=== PATIENT | female | born 1985 | race Two or more races ===

== ENCOUNTER 2019-04-13 15:57 | Outpatient (CLI) | payer OTHER | END 2019-04-13 16:07 | disposition home or self-care (01) | LOC: SONOGRAMA 15:57 | DX: N60.19 Diffuse cystic mastopathy of unspecified breast (principal) ==

== ENCOUNTER 2023-01-13 15:34 | Outpatient (CLI) | payer OTHER | END 2023-01-13 15:39 | disposition home or self-care (01) | LOC: RAD 15:34 | PROVIDERS: ATTEND Physical Medicine & Rehabilitation Hospice and Palliative Medicine | DX: M22.42 Chondromalacia patellae, left knee (principal) ==

== ENCOUNTER 2024-02-13 09:40 | Emergency (ER) | payer OTHER ==
[~2024-02-13] VITALS: Ht 160 cm; Wt 60.3 kg
[2024-02-13] MEDS ORDERED: ECOTRIN81 MG PO (10:17)
[2024-02-13] MEDS ORDERED: FOLBIC TABLET1 EACH PO (10:18)
[2024-02-13] MEDS ORDERED: ONDANSETRON 4 MG TAB.RAPDIS PO STA (11:04)
[2024-02-13] MEDS ORDERED: FAMOtidine 10 MG/ML (4ML VIAL) IV STA (11:04)
[2024-02-13 11:53] LABS: HEMATOCRIT 32.7 % (36.0-45.00); HEMOGLOBIN 11.4 g/dL (12.0-15.00); MEAN CORPUSCULAR HEMOGLOBIN 31.6 pg (27.00-32.0); MEAN CORPUSCULAR HGB CONC 34.7 g/dl (32.0-36.0); PLATELET COUNT 399 K/uL (150-450); RED CELL DISTRIBUTION WIDTH 13.7 % (11.5-14.5)
[2024-02-13 12:38] LABS: CALCIUM 8.7 mg/dL (8.5-10.1); CREATININE SERUM 0.38 mg/dL (0.55-1.02); GFR 188.53; POTASSIUM 4.47 mEq/L (3.5-5.1)
[2024-02-13] MEDS ORDERED: ACETAMINOPHEN 500 MG GEL..CAP PO STA (13:50)
[2024-02-13 14:18] LABS: PH,URINE 6.5 (5.0-8.0); URINE APPEARANCE Clear; URINE BILIRRUBIN Negative (NEGATIVE); URINE BLOOD Negative; URINE COLOR Yellow; URINE GLUCOSE Negative (NEGATIVE); URINE LEUKOCYTE Negative; URINE NITRATE Negative; URINE PROTEIN Negative (NEGATIVE); URINE UROBILINOGEN 0.2 E.U./dl
[2024-02-13 14:19] LABS: URINE BACTERIA 565.5 uL (0.0-1933); URINE EPITHELIAL CELLS 4.7 uL (0.0-38.8); URINE RBC 22.7 uL (0.0-20.8); URINE WBC 8.1 uL (0.0-23.2)
[2024-02-13 14:22] LABS: URINE KETONE 40 (NEGATIVE)
[2024-02-13] MEDS ORDERED: SUMATRIPTAN SUCCINATE 6 MG/0.5 ML VIAL SUBCUTANEO ONE (20:00)
[2024-02-13] MEDS ORDERED: ONDANSETRON HCL 2 MG/ML VIAL IV ONE (20:30)
[2024-02-14] MEDS ORDERED: RINGERS SOLUTION,LACTATED 1,000 ML IV SCH (09:00)
== END 2024-02-13 20:51 | disposition home or self-care (01) ==
LOC: ER 09:42
PROVIDERS: General Practice
DX: O21.0 Mild hyperemesis gravidarum (principal); Z3A.08 8 weeks gestation of pregnancy; Z88.2 Allergy status to sulfonamides

== ENCOUNTER 2024-03-26 19:36 | Emergency (ER) | payer OTHER ==
[~2024-03-26] VITALS: Ht 160 cm; Wt 63.5 kg
[~2024-03-26 19:36] MED LIST: ECOTRIN81 MG PO; FOLBIC TABLET1 EACH PO
[2024-03-27 03:50] LABS: PH,URINE 5.5 (5.0-8.0); URINE APPEARANCE Clear; URINE BILIRRUBIN Negative (NEGATIVE); URINE BLOOD Small; URINE COLOR Yellow; URINE GLUCOSE Negative (NEGATIVE); URINE KETONE Negative (NEGATIVE); URINE LEUKOCYTE Negative; URINE NITRATE Negative; URINE PROTEIN Negative (NEGATIVE); URINE UROBILINOGEN 0.2 E.U./dl
[2024-03-27 03:53] LABS: URINE EPITHELIAL CELLS 3.8 uL (0.0-38.8); URINE RBC 13.4 uL (0.0-20.8); URINE WBC 9.8 uL (0.0-23.2)
== END 2024-03-27 03:50 | disposition home or self-care (01) ==
LOC: ER 19:38
PROVIDERS: Emergency Medicine
DX: O26.852 Spotting complicating pregnancy, second trimester (principal); Z3A.16 16 weeks gestation of pregnancy; Z88.2 Allergy status to sulfonamides

== ENCOUNTER 2024-04-19 21:19 | Inpatient (IN) | payer OTHER ==
[~2024-04-19] VITALS: Ht 160 cm; Wt 64.9 kg
[2024-04-19 20:53] VITALS: BP 103/64
[2024-04-19] MEDS ORDERED: MAGNESIUM SULFATE IN WATER 500 ML IV SCH (21:45)
[2024-04-19] MEDS ORDERED: MORPHINE SULFATE 4 MG/ML CARTRIDGE IV PRN (21:45)
[2024-04-19] MEDS ORDERED: MAGNESIUM SULFATE IN WATER 100 ML IV ONE (21:45)
[2024-04-19] MEDS ORDERED: RINGERS SOLUTION,LACTATED 1,000 ML IV SCH (21:45)
[2024-04-19 23:11] LABS: HEMATOCRIT 27.8 % (36.0-45.00); HEMOGLOBIN 9.6 g/dL (12.0-15.00); MEAN CELL VOLUME 94.3 fL (80.00-100.00); MEAN CORPUSCULAR HEMOGLOBIN 32.5 pg (27.00-32.0); MEAN CORPUSCULAR HGB CONC 34.5 g/dl (32.0-36.0); PLATELET COUNT 336 K/uL (150-450); RED BLOOD COUNT 2.94 M/uL (4.00-6.00); RED CELL DISTRIBUTION WIDTH 14.3 % (11.5-14.5)
[2024-04-19 23:12] LABS: URINE APPEARANCE Clear; URINE BILIRRUBIN Negative (NEGATIVE); URINE BLOOD Negative; URINE COLOR Yellow; URINE GLUCOSE Negative (NEGATIVE); URINE KETONE Negative (NEGATIVE); URINE LEUKOCYTE Trace; URINE NITRATE Negative; URINE PROTEIN Negative (NEGATIVE); URINE UROBILINOGEN 0.2 E.U./dl
[2024-04-19 23:14] VITALS: BP 100/63
[2024-04-19 23:17] LABS: URINE BACTERIA 594.6 uL (0.0-1933); URINE EPITHELIAL CELLS 9.9 uL (0.0-38.8); URINE RBC 5.3 uL (0.0-20.8); URINE WBC 18.2 uL (0.0-23.2)
[2024-04-19 23:21] LABS: URINE CAST 0.14 uL (0.0-1.40)
[2024-04-19 23:29] LABS: INR 0.96; PARTIAL THROMBOPLASTIN TIME 21.5 SECONDS (22.0-34.0); PROTHROMBIN TIME 10.5 SECONDS (9.0-11.5)
[2024-04-19 23:31] LABS: ALBUMIN 2.7 gm/dL (3.4-5.0); BILIRUBIN TOTAL 0.25 mg/dL (0.3-1.2); CALCIUM 8.9 mg/dL (8.5-10.1); CREATININE SERUM 0.43 mg/dL (0.55-1.02); GFR 163.47; GLOBULINA 3.5 G/DL (2.4-3.5); POTASSIUM 4.3 mEq/L (3.5-5.1); TOTAL PROTEIN 6.2 gm/dL (6.4-8.2)
[2024-04-20] VITALS (7 sets, daily range): BP systolic 95–108; BP diastolic 60–70; O2SAT 99–100
[2024-04-20] MEDS ORDERED: SOD FERRIC GLUC COMPLX/SUCROSE 125 MG in 0.9 % SODIUM CHLORIDE 100 ML IV SCH (09:00)
[2024-04-20] MEDS ORDERED: PNV,CALCIUM 72/IRON/FOLIC ACID 1 TAB TABLET PO SCH (09:00)
[2024-04-20] MEDS ORDERED: ONDANSETRON HCL 2 MG/ML VIAL IV SCH (09:00)
[2024-04-20] MEDS ORDERED: CYCLOBENZAPRINE HCL 5 MG TABLET PO PRN (17:15)
[2024-04-20] MEDS ORDERED: DOCUSATE CALCIUM 240 MG CAPSULE PO SCH (23:43)
[2024-04-20] MEDS ORDERED: ONDANSETRON HCL 2 MG/ML VIAL IV PRN (23:50)
[2024-04-21 04:06] VITALS: BP 95/60
[2024-04-21 07:15] VITALS: BP 94/56
[2024-04-21 11:48] VITALS: BP 103/64
== END 2024-04-21 12:13 | disposition home or self-care (01) | DRG 833 ==
LOC: LDR 21:19
PROVIDERS: ADMIT Obstetrics & Gynecology Maternal & Fetal Medicine; ATTEND Obstetrics & Gynecology Maternal & Fetal Medicine
PROC: 4A1HXCZ Monitoring of Products of Conception, Cardiac Rate, External Approach (ICD-10-PCS; principal; 2024-04-19)
PROC: BT43ZZZ Ultrasonography of Bilateral Kidneys (ICD-10-PCS; 2024-04-20)
DX: O26.892 Other specified pregnancy related conditions, second trimester (principal); R10.9 Unspecified abdominal pain; O30.002 Twin pregnancy, unspecified number of placenta and unspecified number of amniotic sacs, second trimester; Z3A.20 20 weeks gestation of pregnancy; Z20.822 Contact with and (suspected) exposure to COVID-19

== ENCOUNTER 2024-05-26 11:15 | Outpatient (CLI) | payer OTHER | END 2024-05-26 12:24 | disposition home or self-care (01) | LOC: NST 11:15 | PROVIDERS: ATTEND Obstetrics & Gynecology Maternal & Fetal Medicine | DX: Z3A.25 25 weeks gestation of pregnancy (principal) ==

== ENCOUNTER 2024-06-09 12:37 | Outpatient (CLI) | payer OTHER | END 2024-06-09 13:48 | disposition home or self-care (01) | LOC: NST 12:37 | PROVIDERS: ATTEND Obstetrics & Gynecology Maternal & Fetal Medicine | DX: Z34.82 Encounter for supervision of other normal pregnancy, second trimester (principal) ==

== ENCOUNTER 2024-06-23 13:14 | Outpatient (CLI) | payer OTHER | END 2024-06-23 14:34 | disposition home or self-care (01) | LOC: NST 13:14 | PROVIDERS: ATTEND Obstetrics & Gynecology | DX: Z3A.29 29 weeks gestation of pregnancy (principal) ==

== ENCOUNTER 2024-06-30 12:53 | Outpatient (CLI) | payer OTHER | END 2024-06-30 14:04 | disposition home or self-care (01) | LOC: NST 12:53 | PROVIDERS: ATTEND Obstetrics & Gynecology Maternal & Fetal Medicine | DX: Z3A.30 30 weeks gestation of pregnancy (principal) ==

== ENCOUNTER 2024-07-13 23:53 | Inpatient (IN) | payer OTHER ==
[~2024-07-13] VITALS: Ht 160 cm; Wt 72.6 kg
[2024-07-13 23:07] VITALS: BP 110/70
[~2024-07-13 23:53] MED LIST changes: +MAGNESIUM SULFATE IN WATER 500 ML IV SCH; +RINGERS SOLUTION,LACTATED 1,000 ML IV SCH
[2024-07-14] MEDS ORDERED: INTEGRA PLUS C1 EACH (00:05)
[2024-07-14] MEDS ORDERED: PRENATAL MULTI1 EAC3 (00:05)
[2024-07-14] MEDS ORDERED: PEPCID AC20 MG PO (00:05)
[2024-07-14 00:55] LABS: HEMATOCRIT 30.5 % (36.0-45.00); HEMOGLOBIN 10.6 g/dL (12.0-15.00); MEAN CORPUSCULAR HEMOGLOBIN 33.7 pg (27.00-32.0); MEAN CORPUSCULAR HGB CONC 34.7 g/dl (32.0-36.0); PLATELET COUNT 277 K/uL (150-450); RED BLOOD COUNT 3.14 M/uL (4.00-6.00); RED CELL DISTRIBUTION WIDTH 14.9 % (11.5-14.5)
[2024-07-14 01:11] LABS: INR 0.95; PARTIAL THROMBOPLASTIN TIME 23.6 SECONDS (22.0-34.0); PROTHROMBIN TIME 10.4 SECONDS (9.0-11.5)
[2024-07-14 01:16] LABS: ALBUMIN 2.3 gm/dL (3.4-5.0); BILIRUBIN TOTAL 0.21 mg/dL (0.3-1.2); CALCIUM 8.7 mg/dL (8.5-10.1); CREATININE SERUM 0.47 mg/dL (0.55-1.02); GFR 147.52; GLOBULINA 3.5 G/DL (2.4-3.5); POTASSIUM 3.8 mEq/L (3.5-5.1); TOTAL PROTEIN 5.8 gm/dL (6.4-8.2)
[2024-07-14 04:00] VITALS: BP 99/64
[2024-07-14 06:10] VITALS: BP 108/70; O2SAT 97
[2024-07-14] MEDS ORDERED: PNV,CALCIUM 72/IRON/FOLIC ACID 1 TAB TABLET PO SCH (09:00)
[2024-07-14] MEDS ORDERED: BETAMETHASONE ACETATE,SOD PHOS 30 MG/5 ML ML IM SCH (09:00)
[2024-07-14 11:20] VITALS: BP 109/71
[2024-07-14 15:16] VITALS: BP 101/66
[2024-07-14] MEDS ORDERED: FERROUS SULFATE 325 MG TABLET.EC PO SCH (16:00)
[2024-07-14] MEDS ORDERED: FAMOtidine 20 MG TABLET PO SCH (17:00)
[2024-07-14 19:30] VITALS: BP 116/70
[2024-07-14 23:22] VITALS: BP 113/65
[2024-07-15] VITALS (8 sets, daily range): BP systolic 70–115; BP diastolic 38–73; O2SAT 97–98
[2024-07-15] MEDS ORDERED: NIFEDIPINE 30 MG TAB.SA.OSM PO SCH (09:00)
[2024-07-16 03:42] VITALS: BP 107/64
[2024-07-16 06:01] VITALS: BP 100/64; O2SAT 97
[2024-07-16] MEDS ORDERED: NIFEDIPINE 30 MG TAB.SA.OSM PO ONE (07:43)
[2024-07-16] MEDS ORDERED: NIFEDIPINE 60 MG TAB.SA.OSM PO SCH (09:00)
[2024-07-16 10:00] VITALS: BP 99/61
[2024-07-16 17:27] VITALS: BP 100/60
[2024-07-16 23:38] VITALS: BP 103/67
[2024-07-17 08:00] VITALS: BP 100/67
== END 2024-07-17 14:12 | disposition home or self-care (01) | DRG 833 ==
LOC: LDR 23:53 → OB/GYN 07-16 08:20
PROVIDERS: ADMIT Obstetrics & Gynecology; ATTEND Obstetrics & Gynecology
PROC: BY4GZZZ Ultrasonography of Third Trimester, Multiple Gestation (ICD-10-PCS; principal; 2024-07-13)
PROC: 4A1HXCZ Monitoring of Products of Conception, Cardiac Rate, External Approach (ICD-10-PCS; 2024-07-13)
DX: O30.043 Twin pregnancy, dichorionic/diamniotic, third trimester (principal); Z3A.32 32 weeks gestation of pregnancy

== ENCOUNTER 2024-07-21 12:44 | Outpatient (CLI) | payer OTHER ==
[~2024-07-21 12:44] MED LIST changes: +INTEGRA PLUS C1 EACH; -MAGNESIUM SULFATE IN WATER 500 ML IV SCH; +PEPCID AC20 MG PO; +PRENATAL MULTI1 EAC3; -RINGERS SOLUTION,LACTATED 1,000 ML IV SCH
== END 2024-07-21 13:36 | disposition home or self-care (01) ==
LOC: NST 12:44
PROVIDERS: ATTEND Obstetrics & Gynecology Maternal & Fetal Medicine
DX: Z34.83 Encounter for supervision of other normal pregnancy, third trimester (principal)

== ENCOUNTER 2024-07-28 12:45 | Outpatient (CLI) | payer OTHER | END 2024-07-28 13:38 | disposition home or self-care (01) | LOC: NST 12:45 | PROVIDERS: ATTEND Obstetrics & Gynecology Maternal & Fetal Medicine | DX: Z3A.34 34 weeks gestation of pregnancy (principal) ==

== ENCOUNTER 2024-08-04 13:12 | Outpatient (CLI) | payer OTHER | END 2024-08-04 14:31 | disposition home or self-care (01) | LOC: NST 13:12 | PROVIDERS: ATTEND Obstetrics & Gynecology Maternal & Fetal Medicine | DX: Z34.83 Encounter for supervision of other normal pregnancy, third trimester (principal) ==

== ENCOUNTER 2024-08-11 10:18 | Outpatient (CLI) | payer OTHER | END 2024-08-11 11:33 | disposition home or self-care (01) | LOC: NST 10:18 | PROVIDERS: ATTEND Obstetrics & Gynecology Maternal & Fetal Medicine | DX: Z34.83 Encounter for supervision of other normal pregnancy, third trimester (principal) ==

== ENCOUNTER 2024-08-11 13:45 | Inpatient (IN) | payer OTHER ==
[~2024-08-11] VITALS: Ht 160 cm; Wt 2.3 kg
[2024-08-11 14:59] LABS: HEMATOCRIT 33.5 % (36.0-45.00); HEMOGLOBIN 11.4 g/dL (12.0-15.00); MEAN CELL VOLUME 96.4 fL (80.00-100.00); MEAN CORPUSCULAR HGB CONC 34.2 g/dl (32.0-36.0); PLATELET COUNT 236 K/uL (150-450); RED BLOOD COUNT 3.47 M/uL (4.00-6.00); RED CELL DISTRIBUTION WIDTH 14.6 % (11.5-14.5)
[2024-08-11 15:30] LABS: RH POSITIVE
[2024-08-11 15:41] LABS: ALBUMIN 2.5 gm/dL (3.4-5.0); BILIRUBIN TOTAL 0.37 mg/dL (0.3-1.2); CREATININE SERUM 0.6 mg/dL (0.55-1.02); GFR 111.29; GLOBULINA 3.7 G/DL (2.4-3.5); POTASSIUM 4.1 mEq/L (3.5-5.1); TOTAL PROTEIN 6.2 gm/dL (6.4-8.2)
[2024-08-11 16:02] LABS: INR 0.96; PROTHROMBIN TIME 10.5 SECONDS (9.0-11.5)
[2024-08-18 06:04] VITALS: BP 120/78
[2024-08-18] MEDS ORDERED: CITRIC ACID/SODIUM CITRATE 30 ML BLIST.PACK PO ONE ×2 (07:06→09:30)
[2024-08-18] MEDS ORDERED: CEFOXITIN SODIUM 2,000 MG VIAL IV ONE ×2 (07:07→09:30)
[2024-08-18] MEDS ORDERED: OXYTOCIN 10 UNITS/ML VIAL ONE ×2 (07:13→10:22)
[2024-08-18] MEDS ORDERED: ERYTHROMYCIN BASE OPHT 1GM EACH TUBE OP ONE ×2 (07:14→09:45)
[2024-08-18] MEDS ORDERED: SIMETHICONE 125 MG CAPSULE PO SCH (09:00)
[2024-08-18] MEDS ORDERED: OXYTOCIN 10 UNITS/ML VIAL IV ONE (09:30)
[2024-08-18] MEDS ORDERED: KETOROLAC TROMETHAMINE 30 MG VIAL ONE (10:31)
[2024-08-18] MEDS ORDERED: MEPERIDINE HCL/PF 25 MG/ML VIAL IM PRN (10:45)
[2024-08-18] MEDS ORDERED: OXYTOCIN 40 UNITS in RINGERS SOLUTION,LACTATED 1,000 ML IV SCH (10:45)
[2024-08-18] MEDS ORDERED: PROMETHAZINE HCL 25 MG/ML AMPUL IM PRN (11:00)
[2024-08-18 11:31] VITALS: BP 137/77
[2024-08-18] MEDS ORDERED: KETOROLAC TROMETHAMINE 10 MG TABLET PO SCH (12:00)
[2024-08-18 14:40] LABS: HEMATOCRIT 31.9 % (36.0-45.00); MEAN CELL VOLUME 95.4 fL (80.00-100.00); MEAN CORPUSCULAR HEMOGLOBIN 32.9 pg (27.00-32.0); MEAN CORPUSCULAR HGB CONC 34.5 g/dl (32.0-36.0); PLATELET COUNT 206 K/uL (150-450); RED BLOOD COUNT 3.35 M/uL (4.00-6.00); RED CELL DISTRIBUTION WIDTH 14.7 % (11.5-14.5)
[2024-08-18 15:48] VITALS: BP 129/64
[2024-08-18] MEDS ORDERED: CEFAZOLIN SODIUM 1,000 MG VIAL IV SCH (17:00)
[2024-08-18 20:00] VITALS: BP 116/68
[2024-08-19] VITALS: BP 120/78
[2024-08-19] MEDS ORDERED: RINGERS SOLUTION,LACTATED 1,000 ML IV SCH
[2024-08-19 06:16] LABS: HEMATOCRIT 28.5 % (36.0-45.00); HEMOGLOBIN 10.1 g/dL (12.0-15.00); MEAN CELL VOLUME 95.7 fL (80.00-100.00); MEAN CORPUSCULAR HEMOGLOBIN 33.8 pg (27.00-32.0); MEAN CORPUSCULAR HGB CONC 35.3 g/dl (32.0-36.0); PLATELET COUNT 189 K/uL (150-450); RED BLOOD COUNT 2.98 M/uL (4.00-6.00); RED CELL DISTRIBUTION WIDTH 14.6 % (11.5-14.5)
[2024-08-19] MEDS ORDERED: OxyCODONE HCL 5 MG TABLET (ROXICODONE) PO SCH (08:00)
[2024-08-19 09:30] VITALS: BP 114/71
[2024-08-19 16:08] VITALS: BP 111/66
[2024-08-20 00:50] VITALS: BP 116/69
[2024-08-20 04:51] VITALS: BP 112/74
[2024-08-20 09:29] VITALS: BP 106/69
[2024-08-20 15:57] VITALS: BP 124/81
[2024-08-21] VITALS: BP 110/71
[2024-08-21 08:11] VITALS: BP 117/68
[2024-08-21] MEDS ORDERED: KETO10TA2 PO (09:10)
[2024-08-21] MEDS ORDERED: OXYCODONE HCL5 MG PO (09:11)
== END 2024-08-21 12:25 | disposition home or self-care (01) | DRG 788 ==
LOC: LDR 08-16 13:45 → OB/GYN 08-18 05:35 → O/R 08-18 05:35 → OB/GYN 08-18 09:02
PROVIDERS: ADMIT Obstetrics & Gynecology Maternal & Fetal Medicine; ATTEND Obstetrics & Gynecology Maternal & Fetal Medicine
PROC: 4A1HXCZ Monitoring of Products of Conception, Cardiac Rate, External Approach (ICD-10-PCS; 2024-08-18)
PROC: 10D00Z1 Extraction of Products of Conception, Low, Open Approach (ICD-10-PCS; principal; 2024-08-18 07:00)
DX: O32.1XX2 Maternal care for breech presentation, fetus 2 (principal); O30.033 Twin pregnancy, monochorionic/diamniotic, third trimester; Z3A.37 37 weeks gestation of pregnancy; Z37.2 Twins, both liveborn